=== PATIENT | male | born 1990 | race Caucasian/White ===

== ENCOUNTER 2023-08-24 09:40 | Emergency (ER) | payer OTHER, SELFPAY ==
--- NOTE | ~2023-08-24 | CT_ITS ---
EXAMINATION: CT lumbar spine wo con DATE: 08/24/2023 11:43 INDICATION: Low back pain. TECHNIQUE: Computed tomography (CT) of the lumbar spine was performed without intravenous contrast. A utomated exposure control and iterative reconstruction technique were employed. The dose-length produ ct was 178.68 mGy-cm. COMPARISON: None FINDINGS: There is 7 degrees levocurvature of lumbar spine. Vertebral body heights are normal. Interv ertebral disc heights are normal. The following disc levels are specifically discussed: L1-L2: The disc does not extend beyond the endplate margin. There is mild bilateral facet joint osteo arthritis. There is no neural foraminal stenosis. There is no central canal stenosis. L2-L3: The disc does not extend beyond the endplate margin. There is no facet joint osteoarthritis. T here is no neural foraminal stenosis. There is no central canal stenosis. L3-L4: The disc does not extend beyond the endplate margin. There is no facet joint osteoarthritis. T here is no neural foraminal stenosis. There is no central canal stenosis. L4-L5: The disc is bulging. There is mild right facet joint osteoarthritis. There is mild bilateral n eural foraminal stenosis. There is mild central canal stenosis. L5-S1: The disc is bulging. There is mild bilateral facet joint osteoarthritis. There is mild bilater al neural foraminal stenosis. There is mild central canal stenosis. IMPRESSION: 1. Mild lumbar spondylosis. Reviewed, dictated and finalized at location A. ADMINISTRATIVE ASSISTANT IMPRESSION: 1. Mild lumbar spondylosis.
[2023-08-24 09:44] VITALS: BP 141/76; PULSE 73; RESP 16; TEMP 36.6; O2SAT 100
--- NOTE | 2023-08-24 11:40 | ED.BACK ---
HPI - Back Pain/Injury General Chief Complaint: Back Pain/Injury Stated Complaint: Back pain Time Seen by Provider: 08/24/23 11:07 Source: patient Mode of arrival: wheelchair Limitations: no limitations History of Present Illness HPI Narrative: This is a 33 year old male that presents to the ER for low back pain. Ongoing since yesterday. No known injuries. Reports it started to hurt at work yesterday. He went to urgent care and was prescribed Prednisone and Cyclobenzaprine. Took them this morning without relief which prompted him to be seen again. Denies saddle anesthesia or bowel/bladder incontinence. Related Data Allergies Allergy/AdvReac Type Severity Reaction Status Date / Time No Known Allergies Allergy Verified 08/24/23 09:47 Review of Systems Review of Systems: CONSTITUTIONAL: Denies fever SKIN: Denies rash MUSCULOSKELETAL: Reports back pain, joint pain, and myalgia. NEUROLOGIC: Denies numbness, or weakness. All systems reviewed & are unremarkable except as noted in HPI and below PMFSH Past Medical History Medical History (Updated 08/24/23 @ 12:06 by Silvia Mishra PA-C) No active medical problems Social History Social History (Updated 08/24/23 @ 11:43 by Silvia Mishra PA-C) Substance use: never Exam Narrative: GENERAL: Well-appearing, well-nourished, and in no acute distress. HEAD: Normocephalic, atraumatic. EYES: EOMI. CHEST: Clear to auscultation. No respiratory distress. No wheezes rales or rhonchi HEART: Regular rate and rhythm. No murmur heard. Normal peripheral pulses. BACK: No midline spinal tenderness EXTREMITIES: Normal range of motion. No edema. Strength equal in bilateral lower extremities (5/5). Normal DP pulses SKIN: Warm, dry, no rash. NEURO: No focal deficits. Alert and oriented x3. PSYCH: Normal mood and affect Course Course Emergency Course: Patient updated on workup and agrees with plan of care Vital Signs Vital signs: Vital Signs Temperature 97.8 F 08/24/23 09:44 Pulse Rate 73 08/24/23 09:44 Respiratory Rate 16 08/24/23 09:44 Blood Pressure 141/76 H 08/24/23 09:44 Pulse Oximetry 100 08/24/23 09:44 Temperature 97.8 F 08/24/23 09:44 Pulse Rate 73 08/24/23 09:44 Respiratory Rate 16 08/24/23 09:44 Blood Pressure 141/76 H 08/24/23 09:44 Pulse Oximetry 100 08/24/23 09:44 MDM - Back Pain/Injury MDM Narrative Medical decision making narrative: Patient presents to the ER for low back pain ongoing since yesterday. No known injuries or trauma. He is neurologically intact. Denies any bowel/bladder incontinence. CT scan of the lumbar spine shows mild lumbar spondylosis. Patient updated on workup and agrees with plan of care. He is to follow up with PCP. He was given warnings to return to the ER Differential Diagnosis Differential diagnosis: Likely lumbar radiculopathy, sciatica and strain of lumbar region Imaging Data Radiologist's impression: ITS Impressions Lumbar Spine CT 08/24/23 11:46 IMPRESSION: 1. Mild lumbar spondylosis. Critical Care Time Critical Care Time Critical Care Time: No Discharge Plan Discharge Clinical Impression: Low back pain Qualifiers: Chronicity: acute Back pain laterality: midline Sciatica presence: without sciatica Qualified Code(s): M54.50 - Low back pain, unspecified Patient Disposition: Home, Self-Care Condition: Stable Instructions: Back Pain (ED) Additional Instructions: Return to the ER if you experience weakness, numbness, bowel/bladder incontinence, or any other symptoms that are concerning to you Rest, use ice/heat, take anti-inflammatories (Aleve, Ibuprofen, Naproxen, etc) or Tylenol as needed for pain as well as muscle relaxer (Flexeril) as needed for pain. Muscle relaxers can make you drowsy, do not drive if you take this. Continue prednisone as prescribed Follow up with primary care doctor Follow-up/Referrals: Atilio Moses MD [Physician]
[2023-08-24] MEDS: ACETAMINOPHEN 500 MG TABLET 1000 MG PO (11:49)
[2023-08-24] MEDS: diazePAM INJ (*CRX) 10 MG/2 ML SYRINGE 5 MG IM (11:50)
[2023-08-24] MEDS: KETOROLAC 30 MG/ML VIAL (*BKC) IM (11:50)
[2023-08-24 12:23] VITALS: BP 121/75; PULSE 71; RESP 15; O2SAT 99
== END 2023-08-24 12:25 | disposition home or self-care (01) ==
PROVIDERS: Emergency Provider Physician Assistant
DX: M54.50 Low back pain, unspecified (principal)
CPT/HCPCS: 72131; 96372; 99284; A9270; J1885; J3360